=== PATIENT | male | born 1950 | race Caucasian/White ===

== ENCOUNTER → 2016-10-17 | Outpatient (CLI) | payer MEDICARE, BC ==
--- NOTE | 2016-10-17 15:28 | REP ---
CHEST, TWO VIEWS: PA and lateral views of the chest are performed. There is no consolidating infiltrate. There are mild increased interstitial markings in the lung bases, which may represent interstitial fibrotic change versus bronchitis/pneumonitis. The heart is normal in size. The mediastinal silhouette is unremarkable. There are mild degenerative changes of the spine. IMPRESSION: Mild basilar fibrotic changes versus pneumonitis/bronchitis. No consolidating infiltrate. Signed by Van Pop MD 10/17/2016 05:05 P
== END ==
LOC: M ADAMS 14:01
PROVIDERS: ATTEND Physician Assistant
DX: J20.9 Acute bronchitis, unspecified (principal); R50.9 Fever, unspecified; R06.02 Shortness of breath

== ENCOUNTER 2019-07-07 14:23 | Emergency (ER) | payer MEDICARE, BC ==
[~2019-07-07] VITALS: Ht 172.7 cm; Wt 137.1 kg
[2019-07-07] MEDS ORDERED: ATIV1TAB7 PO (14:47)
[2019-07-07] MEDS ORDERED: ATIV2INJ5 IM (14:47)
[2019-07-07] MEDS ORDERED: FENT50DI5 TD (14:47)
[2019-07-07] MEDS ORDERED: DULO1CAP6 PO (14:47)
[2019-07-07] MEDS ORDERED: LINZ145C PO (14:47)
[2019-07-07 16:25] LABS: BASO # 0.1 10^3/uL (0.0-0.2); BASO % 1.1 % (0.0-1.0); EOS # 0.2 10^3/uL (0.0-0.5); EOS % 2.4 % (0.0-3.0); HEMATOCRIT 42.8 % (42.0-52.0); HEMOGLOBIN 14.1 g/dl (13.5-17.5); LYMPH # 1.7 10^3/uL (1.5-5.0); LYMPH % 27.7 % (24.0-44.0); MEAN CORPUSCULAR HEMOGLOBIN 30.9 pg (27.0-33.0); MEAN CORPUSCULAR HGB CONC 32.9 g/dl (32.0-36.5); MEAN CORPUSCULAR VOLUME 93.7 fl (80.0-96.0); MONO # 0.6 10^3/uL (0.0-0.8); MONO % 10.3 % (0.0-5.0); NEUTROPHILS # 3.6 10^3/uL (1.5-8.5); PLATELET COUNT, AUTOMATED 198 10^3/uL (150-450); RED BLOOD COUNT 4.57 10^6/uL (4.30-6.10); WHITE BLOOD COUNT 6.2 10^3/uL (4.0-10.0)
[2019-07-07 16:46] LABS: BLOOD UREA NITROGEN 10 MG/DL (7-18); CALCIUM LEVEL 8.4 MG/DL (8.8-10.2); CARBON DIOXIDE LEVEL 32 MEQ/L (21-32); CHLORIDE LEVEL 105 MEQ/L (98-107); CREATININE FOR GFR 0.68 MG/DL (0.70-1.30); GLOMERULAR FILTRATION RATE > 60.0 (>49); GLUCOSE, FASTING 87 MG/DL (70-100); POTASSIUM SERUM 4.5 MEQ/L (3.5-5.1); SODIUM LEVEL 140 MEQ/L (136-145)
[2019-07-07] MEDS ORDERED: PROHANCE 279.3MG/ML 5ML VIAL (A9576) As Ordered ONE (17:42)
[2019-07-07] MEDS ORDERED: PROHANCE 279.3MG/ML 15ML VIAL (A9576) As Ordered ONE (17:43)
--- NOTE | 2019-07-07 19:01 | REPVR ---
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 [place]? ? No access to prior report to confirm/deny this. PT has f/u with neurology in 1week. 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 Contrast material: PROHANCE; Contrast volume: 20 ml; Contrast route: 20G ANGIO; COMPARISON: No relevant prior studies available. FINDINGS: Brain: The brain demonstrates mild, age commensurate volume loss. Patchy foci of increased signal intensity in the deep and subcortical white matter on the T2-weighted imaging most likely representing moderate chronic small vessel ischemic change. No acute infarct identified on the diffusion weighted imaging. No significant pathologic enhancement on the post contrast imaging. 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 Ventricles: With specific attention to the anterior third ventricle region, no discrete mass, cyst or abnormal enhancement identified. On the FLAIR sequence, slightly heterogeneous signal of uncertain significance, could conceivably reflect physiologic/normal signal related to slightly inhomogeneous CSF suppression versus slightly turbulent flow related to a subtle underlying colloid cyst given the provided history of one being diagnosed on a prior CT (sometimes these can be quite subtle/punctate). There is no ventriculomegaly. The ventricles appear slightly prominent in keeping with volume loss. Bones/joints: Unremarkable. Soft tissues: Unremarkable. Sinuses: Trace ethmoid mucosal thickening. No acute sinusitis. Mastoid air cells: Normal as visualized. No mastoid effusion. Orbits: Thinning of the lenses of the globes consistent with prior lens surgery. IMPRESSION: 1. No discrete mass or cyst identified in the anterior third ventricle. 2. Scattered white matter disease most likely reflecting moderate chronic small vessel ischemic change. Electronically signed by: Liz Alba On 07/07/2019 19:00:47 PM
[2019-07-07 19:16] VITALS: BP 157/93
== END 2019-07-07 19:27 | disposition home or self-care (01) ==
LOC: M ED 14:23
DX: R51 Headache (principal); C82.90 Follicular lymphoma, unspecified, unspecified site; Z79.899 Other long term (current) drug therapy
CPT/HCPCS: 36415; 70553; 80048; 85025; 99284; A9576

== ENCOUNTER → 2019-07-23 | Outpatient (REF) | payer MEDICARE, BC ==
[~2019-07-23] MED LIST: ATIV1TAB7 PO; ATIV2INJ5 IM; DULO1CAP6 PO; FENT50DI5 TD; LINZ145C PO
[2019-07-25 00:06] LABS: ANTINUCLEAR ANTIBODIES DIRECT Negative (Negative)
== END ==
LOC: M LABNEURO 10:18
PROVIDERS: ATTEND Psychiatry & Neurology Neurology
DX: R51 Headache (principal)

== ENCOUNTER → 2020-07-22 | Outpatient (CLI) | payer MEDICARE, BC ==
[~2020-07-22] MED LIST changes: +GASTROGRAFIN SOLUTION 30ML (Q9963) As Ordered ONE; +ISOVUE-370 76% 100ML VIAL As Ordered ONE
--- NOTE | 2020-07-22 16:33 | REP ---
INDICATION: ABN WT LOSS(48#), HX NHL. COMPARISON: Comparison chest x-ray October 17, 2016.. TECHNIQUE: Helical scanning is acquired and 3 mm axial images are re-formatted. Coronal and sagittal MPR images are generated. CT contrast dose is 100 mL of intravenous Isovue 370. FINDINGS: The ascending thoracic aorta is mildly dilated measuring 4.5 cm in AP dimension at the level of the right main pulmonary artery. Vascular calcification is noted along the distribution of the left coronary artery. No other vascular abnormality is seen. There is no filling defect or vessel cutoff in the pulmonary arterial tree to suggest pulmonary embolus. No hilar or mediastinal mass or adenopathy is observed. There are a few normal-sized superior perivascular mediastinal lymph nodes. Thyroid lobes are not enlarged. No adrenal mass is seen. The visualized upper abdominal structures are unremarkable. The lung cooper show no evidence of infiltrate or pulmonary mass lesion. No pulmonary nodule is appreciated. There is minimal linear fibrosis in the right middle lobe anteriorly. No bony destructive lesion is appreciated. There are degenerative spondylosis changes in the thoracic spine. No extra thoracic mass or adenopathy is seen. IMPRESSION: No evidence of mass or adenopathy. No active cardiopulmonary disease. <Electronically signed by Jaleel Carolina > 07/22/20 [id number]
--- NOTE | 2020-07-22 16:44 | REP ---
INDICATION: ABN WT LOSS(48#), HX NHL. COMPARISON: None. TECHNIQUE: Helical scanning is acquired with dual phase acquisition post IV contrast. The contrast enhancement dose is 100 mL of intravenous Isovue 370. Oral contrast was also administered. FINDINGS: Digital preliminary brick offbearer radiograph demonstrates an unremarkable bowel gas pattern. The liver and the spleen are normal in size homogeneous in texture. There is a 1 cm splenule along the anterior edge of the spleen. Normal adrenal glands are observed bilaterally. No abnormality is noted within the pancreas. The gallbladder is mildly distended measuring up to 13 cm in length. No stone or mass is seen in the gallbladder by CT. No upper abdominal or retroperitoneal adenopathy is observed. The kidneys enhance symmetrically and appear morphologically intact. No renal mass lesion is seen. No hydronephrosis noted. There is mild vascular calcification. The abdominal aorta is normal in caliber somewhat tortuous. Small and large bowel loops are unremarkable in the abdomen and pelvis. The appendix is not confidently identified but there are no inflammatory changes in the right mid abdomen to suggest appendicitis. There are dystrophic calcifications in the prostate. Urinary bladder and seminal vesicles are unremarkable. No pelvic mass or adenopathy is seen. Bone window settings show bilateral hip osteoarthritic changes. There are diffuse degenerative spondylosis changes in the lumbar spine. No bony destructive lesion is appreciated. No extra abdominal soft tissue mass is seen. IMPRESSION: No acute abdominal or pelvic abnormality. Somewhat dilated gallbladder. No mass or adenopathy seen. <Electronically signed by Jaleel Carolina > 07/22/20 [id number]
== END ==
LOC: M RAD 13:42
PROVIDERS: ATTEND Family Medicine
DX: R63.4 Abnormal weight loss (principal)
CPT/HCPCS: 71260; 74177; Q9963; Q9967

== ENCOUNTER → 2024-05-08 | Outpatient (CLI) | payer MEDICARE ==
[~2024-05-08] MED LIST changes: +FENT1PAT25 TD; -FENT50DI5 TD; -GASTROGRAFIN SOLUTION 30ML (Q9963) As Ordered ONE; -ISOVUE-370 76% 100ML VIAL As Ordered ONE
== END ==
LOC: M ADAMS 10:09
PROVIDERS: ATTEND Family Medicine
DX: R07.9 Chest pain, unspecified (principal)

== ENCOUNTER → 2024-08-15 | Outpatient (CLI) | payer MEDICARE, BC ==
[2024-08-15 14:40] LABS: BASO # 0.1 10^3/uL (0.0-0.2); BASO % 0.7 % (0.0-1.0); EOS # 0.1 10^3/uL (0.0-0.5); HEMOGLOBIN 14.8 g/dl (13.5-17.5); LYMPH # 1.7 10^3/uL (1.5-5.0); LYMPH % 24.3 % (24.0-44.0); MEAN CORPUSCULAR HEMOGLOBIN 30.8 pg (27.0-33.0); MEAN CORPUSCULAR HGB CONC 32.9 g/dl (32.0-36.5); MEAN CORPUSCULAR VOLUME 93.8 fl (80.0-96.0); MONO # 0.6 10^3/uL (0.0-0.8); MONO % 8.6 % (2.0-8.0); NEUTROPHILS # 4.6 10^3/uL (1.5-8.5); NEUTROPHILS % 65.1 % (36.0-66.0); PLATELET COUNT, AUTOMATED 248 10^3/uL (150-450)
[2024-08-15 14:49] LABS: ERYTHROCYTE SEDIMENTATION RATE 9 mm/hr (0-20)
[2024-08-15 14:51] LABS: ALBUMIN 3.7 G/DL (3.2-5.2); ALKALINE PHOSPHATASE 68 U/L (40-129); ALT/SGPT 23 U/L (7.0-40); AST/SGOT 20 U/L (<34); BILIRUBIN,TOTAL 0.6 MG/DL (0.3-1.2); BLOOD UREA NITROGEN 13 MG/DL (9-23); CALCIUM LEVEL 10.1 MG/DL (8.3-10.6); CARBON DIOXIDE LEVEL 31 MMOL/L (20-31); CHLORIDE LEVEL 102 MMOL/L (98-107); CREATININE FOR GFR 0.87 MG/DL (0.70-1.30); FREE THYROXINE INDEX 2.6 % (1.4-3.8); GLOMERULAR FILTRATION RATE > 60.0 (>42); GLUCOSE, FASTING 100 MG/DL (74-106); POTASSIUM SERUM 4.7 MMOL/L (3.5-5.1); SODIUM LEVEL 137 MMOL/L (136-145); T UPTAKE 31.6 % (22.5-37.0); THYROID STIMULATING HORMONE 1.398 uIU/ML (0.55-4.78); THYROXINE (T4) 8.3 UG/DL (4.5-10.9); TOTAL PROTEIN 6.9 G/DL (5.7-8.2); VITAMIN B12 LEVEL 390 PG/ML (211-911)
[2024-08-15 15:12] LABS: FOLATE 7.63 NG/ML (>5.4)
[2024-08-19 16:17] LABS: ANA SCREEN, IFA NEGATIVE (NEGATIVE)
== END ==
LOC: M PLALAB 10:18
PROVIDERS: ATTEND Psychiatry & Neurology Neurology
DX: R41.3 Other amnesia (principal); E07.9 Disorder of thyroid, unspecified; D51.9 Vitamin B12 deficiency anemia, unspecified; Z11.3 Encounter for screening for infections with a predominantly sexual mode of transmission; F03.90 Unspecified dementia, unspecified severity, without behavioral disturbance, psychotic disturbance, mood disturbance, and anxiety

== ENCOUNTER → 2024-10-28 | Outpatient (CLI) | payer MEDICARE, BC ==
[2024-10-28 15:24] LABS: HEMATOCRIT 44.4 % (42.0-52.0)
[2024-10-28 15:33] LABS: BASO # 0.1 10^3/uL (0.0-0.2); BASO % 0.8 % (0.0-1.0); EOS % 0.5 % (0.0-3.0); HEMATOCRIT 44.7 % (42.0-52.0); HEMOGLOBIN 14.7 g/dl (13.5-17.5); LYMPH # 1.6 10^3/uL (1.5-5.0); LYMPH % 18.6 % (24.0-44.0); MEAN CORPUSCULAR HEMOGLOBIN 30.5 pg (27.0-33.0); MEAN CORPUSCULAR HGB CONC 32.9 g/dl (32.0-36.5); MEAN CORPUSCULAR VOLUME 92.7 fl (80.0-96.0); MONO # 0.5 10^3/uL (0.0-0.8); MONO % 6.4 % (2.0-8.0); NEUTROPHILS # 6.2 10^3/uL (1.5-8.5); PLATELET COUNT, AUTOMATED 321 10^3/uL (150-450); RED BLOOD COUNT 4.82 10^6/uL (4.30-6.10); WHITE BLOOD COUNT 8.4 10^3/uL (4.0-10.0)
[2024-10-28 15:46] LABS: HEMOGLOBIN A1c 5.3 % (4.0-6.0)
[2024-10-28 15:58] LABS: ALBUMIN 3.7 G/DL (3.2-5.2); ALKALINE PHOSPHATASE 69 U/L (40-129); ALT/SGPT 18 U/L (7.0-40); AST/SGOT 20 U/L (<34); BILIRUBIN,TOTAL 0.5 MG/DL (0.3-1.2); BLOOD UREA NITROGEN 15 MG/DL (9-23); CALCIUM LEVEL 9.4 MG/DL (8.3-10.6); CARBON DIOXIDE LEVEL 31 MMOL/L (20-31); CHLORIDE LEVEL 102 MMOL/L (98-107); CHOLESTEROL LEVEL 158 MG/DL (<200); CHOLESTEROL RISK RATIO 2.77 (<5); CREATININE FOR GFR 0.87 MG/DL (0.70-1.30); GLOMERULAR FILTRATION RATE > 60.0 (>42); GLUCOSE, FASTING 97 MG/DL (74-106); HDL CHOLESTEROL 56.9 MG/DL (>40); LDL CHOLESTEROL 85.5 MG/DL (<100); NON-HDL-C 101.1 MG/DL; POTASSIUM SERUM 4.4 MMOL/L (3.5-5.1); PSA SCREENING 0.58 NG/ML (< 4.00); SODIUM LEVEL 139 MMOL/L (136-145); TOTAL PROTEIN 6.6 G/DL (5.7-8.2); TRIGLYCERIDES LEVEL 78 MG/DL (<150)
[2024-10-28 16:00] LABS: THYROID STIMULATING HORMONE 1.228 uIU/ML (0.55-4.78); VITAMIN B12 LEVEL 466 PG/ML (211-911)
== END ==
LOC: M PLALAB 12:57
PROVIDERS: ATTEND Student in an Organized Health Care Education/Training Program
DX: Z76.89 Persons encountering health services in other specified circumstances (principal); Z79.899 Other long term (current) drug therapy
CPT/HCPCS: 36415; 80053; 80061; 82607; 82652; 82747; 83036; 84439; 84443; 85025; G0103

== ENCOUNTER 2024-11-23 13:28 | Emergency (ER) | payer MEDICARE, BC ==
[~2024-11-23] VITALS: Ht 175.3 cm; Wt 94.2 kg
[2024-11-23] MEDS ORDERED: FAMO40TA3 (13:41)
[2024-11-23] MEDS ORDERED: NALO25TA (13:41)
[2024-11-23] MEDS ORDERED: LORA1TAB23 (13:41)
[2024-11-23] MEDS ORDERED: DONE10TA90 (13:41)
[2024-11-23] MEDS ORDERED: METH4PACK (13:41)
[2024-11-23] MEDS ORDERED: ISOVUE-370 76% 100ML VIAL As Ordered ONE (16:43)
[2024-11-23] MEDS: KETOROLAC 30 MG/ML 1ML VIAL IV ONE (17:04)
[2024-11-23 17:06] LABS: BASO % 0.5 % (0.0-1.0); EOS # 0.1 10^3/uL (0.0-0.5); EOS % 1.3 % (0.0-3.0); HEMATOCRIT 44.7 % (42.0-52.0); HEMOGLOBIN 15.1 g/dl (13.5-17.5); LYMPH % 25.9 % (24.0-44.0); MEAN CORPUSCULAR HEMOGLOBIN 30.8 pg (27.0-33.0); MEAN CORPUSCULAR HGB CONC 33.8 g/dl (32.0-36.5); MONO # 0.7 10^3/uL (0.0-0.8); MONO % 9.3 % (2.0-8.0); NEUTROPHILS # 4.7 10^3/uL (1.5-8.5); NEUTROPHILS % 62.6 % (36.0-66.0); PLATELET COUNT, AUTOMATED 210 10^3/uL (150-450); RED BLOOD COUNT 4.91 10^6/uL (4.30-6.10); WHITE BLOOD COUNT 7.6 10^3/uL (4.0-10.0)
[2024-11-23 17:30] LABS: ALBUMIN 3.5 G/DL (3.2-5.2); BILIRUBIN,DIRECT 0.2 MG/DL (<0.4); BILIRUBIN,TOTAL 0.7 MG/DL (0.3-1.2); TOTAL PROTEIN 6.2 G/DL (5.7-8.2)
[2024-11-23] MEDS: fentaNYL 100 MCG/2 ML INJECTION IV ONE (18:36)
[2024-11-23 19:38] VITALS: BP 151/79; TEMP 97.6; O2SAT 97
== END 2024-11-23 19:46 | disposition home or self-care (01) ==
LOC: M ED 13:28
DX: M54.50 Low back pain, unspecified (principal); R10.11 Right upper quadrant pain; I44.0 Atrioventricular block, first degree; Z79.899 Other long term (current) drug therapy
CPT/HCPCS: 74177; 80047; 80076; 83690; 85025; 93005; 96374; 96375; 99284; J1885; J3010; Q9967

== ENCOUNTER → 2025-04-01 | Outpatient (CLI) | payer MEDICARE, BC ==
[~2025-04-01] MED LIST changes: +AMIT10TA11 PO; +DONE10TA90; +FAMO40TA3; +FENT1DIS34 TOP; +LIDO1PAD TOP; +LORA1TAB23; +METH4PACK; +NALO25TA; +OLAN1TAB16 PO; +OXYC-517 PO
== END ==
LOC: M PAL 10:15
PROVIDERS: ATTEND Physician Assistant
DX: Z51.5 Encounter for palliative care (principal); Z66 Do not resuscitate; F01.50 Vascular dementia, unspecified severity, without behavioral disturbance, psychotic disturbance, mood disturbance, and anxiety; M50.30 Other cervical disc degeneration, unspecified cervical region; Z87.39 Personal history of other diseases of the musculoskeletal system and connective tissue; Z79.891 Long term (current) use of opiate analgesic; Z79.899 Other long term (current) drug therapy

== ENCOUNTER → 2025-04-29 | Outpatient (CLI) | payer MEDICARE, BC ==
[~2025-04-29] MED LIST changes: +BENZ200C70 PO; +MUCI600T31 PO
== END ==
LOC: M PAL 11:30
PROVIDERS: ATTEND Physician Assistant
DX: Z51.5 Encounter for palliative care (principal); Z66 Do not resuscitate; Z79.891 Long term (current) use of opiate analgesic; F01.518 Vascular dementia, unspecified severity, with other behavioral disturbance; Z87.311 Personal history of (healed) other pathological fracture; Z79.899 Other long term (current) drug therapy

== ENCOUNTER → 2025-05-08 | Outpatient (CLI) | payer MEDICARE, BC | LOC: M PAL 10:52 | PROVIDERS: ATTEND Physician Assistant | DX: Z51.5 Encounter for palliative care (principal); Z66 Do not resuscitate; F01.50 Vascular dementia, unspecified severity, without behavioral disturbance, psychotic disturbance, mood disturbance, and anxiety; M47.812 Spondylosis without myelopathy or radiculopathy, cervical region; M50.30 Other cervical disc degeneration, unspecified cervical region; Z79.891 Long term (current) use of opiate analgesic; Z79.899 Other long term (current) drug therapy ==

== ENCOUNTER → 2025-06-12 | Outpatient (CLI) | payer MEDICARE, BC | LOC: M PAL 13:34 | PROVIDERS: ATTEND Physician Assistant | DX: Z51.5 Encounter for palliative care (principal); Z66 Do not resuscitate; F01.518 Vascular dementia, unspecified severity, with other behavioral disturbance; M50.30 Other cervical disc degeneration, unspecified cervical region; Z79.891 Long term (current) use of opiate analgesic; Z79.899 Other long term (current) drug therapy ==

== ENCOUNTER → 2025-07-08 | Outpatient (CLI) | payer MEDICARE, BC ==
[~2025-07-08] MED LIST changes: +MELO15TA28 PO
== END ==
LOC: M PAL 10:18
PROVIDERS: ATTEND Physician Assistant
DX: Z51.5 Encounter for palliative care (principal); Z66 Do not resuscitate; F01.53 Vascular dementia, unspecified severity, with mood disturbance; Z79.891 Long term (current) use of opiate analgesic; Z79.899 Other long term (current) drug therapy

== ENCOUNTER → 2025-07-22 | Outpatient (CLI) | payer MEDICARE, BC | LOC: M PAL 10:02 | PROVIDERS: ATTEND Physician Assistant | DX: Z51.5 Encounter for palliative care (principal); Z66 Do not resuscitate; F01.54 Vascular dementia, unspecified severity, with anxiety; M47.812 Spondylosis without myelopathy or radiculopathy, cervical region; G89.29 Other chronic pain; Z87.39 Personal history of other diseases of the musculoskeletal system and connective tissue; Z79.891 Long term (current) use of opiate analgesic; Z79.899 Other long term (current) drug therapy ==

== ENCOUNTER → 2025-08-05 | Outpatient (CLI) | payer MEDICARE, BC ==
[~2025-08-05] MED LIST changes: +LACT20EL PO; +MIRA3350 PO; +OXYC10TA12 PO; +SENN-186 PO
== END ==
LOC: M PAL 10:25
PROVIDERS: ATTEND Physician Assistant
DX: Z51.5 Encounter for palliative care (principal); Z66 Do not resuscitate; F01.518 Vascular dementia, unspecified severity, with other behavioral disturbance; M50.30 Other cervical disc degeneration, unspecified cervical region; Z87.891 Personal history of nicotine dependence; Z79.899 Other long term (current) drug therapy

== ENCOUNTER → 2025-08-19 | Outpatient (CLI) | payer MEDICARE, BC ==
[~2025-08-19] MED LIST changes: +FENT12DI8 TOP
== END ==
LOC: M PAL 09:35
PROVIDERS: ATTEND Physician Assistant
DX: Z51.5 Encounter for palliative care (principal); Z66 Do not resuscitate; F01.A18 Vascular dementia, mild, with other behavioral disturbance; M50.33 Other cervical disc degeneration, cervicothoracic region; Z79.891 Long term (current) use of opiate analgesic; Z79.899 Other long term (current) drug therapy

== ENCOUNTER → 2025-08-26 | Outpatient (CLI) | payer MEDICARE, BC ==
[2025-08-26 17:30] LABS: APPEARANCE, URINE MANUAL CLEAR (CLEAR); BILIRUBIN, URINE MANUAL NEGATIVE (NEGATIVE); BLOOD URINE MANUAL NEGATIVE (NEGATIVE); COLOR, URINE MANUAL YELLOW (YELLOW); GLUCOSE, URINE (UA) MANUAL NEGATIVE (NEGATIVE); KETONE, URINE MANUAL NEGATIVE (NEGATIVE); LEUKOCYTE ESTERASE, URINE MAN TRACE (NEGATIVE); NITRITE, URINE MANUAL NEGATIVE (NEGATIVE); PH,URINE MAN 5.0 UNITS (5.0 - 7.0); PROTEIN, URINE MANUAL NEGATIVE (NEGATIVE); SPECIFIC GRAVITY,URINE MANUAL 1.025 (1.002-1.035); UROBILINOGEN, URINE MANUAL NORMAL (NORMAL)
[2025-08-26 18:33] LABS: BACTERIA, URINE NONE SEEN; MUCUS, URINE SMALL AMOUNT (NEGATIVE); RBC, URINE NONE SEEN /hpf (0-3); SQUAMOUS EPITHELIAL CELL URINE NONE SEEN /hpf (SMALL AMT); TRANSITIONAL EPI CELLS, URINE SMALL AMOUNT /hpf
[2025-08-26 18:34] LABS: HYALINE CAST, URINE NONE SEEN /lpf (0-1)
[2025-08-26 18:42] LABS: PLATELET COUNT, AUTOMATED 229 10^3/uL (150-450)
[2025-08-26 18:48] LABS: ALT/SGPT 32 U/L (7.0-40); AST/SGOT 32 U/L (<34); CALCIUM LEVEL 9.5 MG/DL (8.3-10.6); CARBON DIOXIDE LEVEL 31 MMOL/L (20-31); CHLORIDE LEVEL 102 MMOL/L (98-107); CREATININE FOR GFR 0.70 MG/DL (0.70-1.30); GLOMERULAR FILTRATION RATE > 90.0 (>42); POTASSIUM SERUM 4.3 MMOL/L (3.5-5.1); SODIUM LEVEL 142 MMOL/L (136-145)
[2025-08-26 18:50] LABS: FREE T4 1.18 NG/DL (0.89-1.76)
== END ==
LOC: M PLALAB 15:15
PROVIDERS: ATTEND Family Medicine
DX: C82.90 Follicular lymphoma, unspecified, unspecified site (principal); Z13.29 Encounter for screening for other suspected endocrine disorder; R10.9 Unspecified abdominal pain; I10 Essential (primary) hypertension

== ENCOUNTER → 2025-08-26 | Outpatient (REF) | payer MEDICARE, BC | LOC: M SFHCPLAZ 14:18 | PROVIDERS: ATTEND Family Medicine | DX: Z53.9 Procedure and treatment not carried out, unspecified reason (principal) ==

== ENCOUNTER → 2025-09-09 | Outpatient (CLI) | payer MEDICARE, BC | LOC: M PAL 08:54 | PROVIDERS: ATTEND Physician Assistant | DX: Z51.5 Encounter for palliative care (principal); Z66 Do not resuscitate; F01.518 Vascular dementia, unspecified severity, with other behavioral disturbance; M50.30 Other cervical disc degeneration, unspecified cervical region; Z79.891 Long term (current) use of opiate analgesic; Z79.899 Other long term (current) drug therapy ==

== ENCOUNTER → 2025-09-16 | Outpatient (CLI) | payer MEDICARE, BC ==
[~2025-09-16] MED LIST changes: +FENT75DI29 TD
== END ==
LOC: M PAL 14:58
PROVIDERS: ATTEND Physician Assistant
DX: Z51.5 Encounter for palliative care (principal); Z66 Do not resuscitate; F01.511 Vascular dementia, unspecified severity, with agitation; M50.30 Other cervical disc degeneration, unspecified cervical region; Z79.891 Long term (current) use of opiate analgesic; Z79.899 Other long term (current) drug therapy